=== PATIENT | male | born 1955 | race Caucasian/White ===

== ENCOUNTER 2019-01-06 08:33 | Outpatient (CLI) | payer BC ==
[2019-01-06 09:10] LABS: Estimated GFR-MDRD - POC Greater than 90
--- NOTE | 2019-01-06 13:06 | MRI ---
MRI OF THE PROSTATE WITHOUT AND WITH CONTRAST: COMPARISON: None. HISTORY: Elevated PSA. TECHNIQUE: Multiplanar, multisequence MR images were obtained of the pelvis/prostate without and with IV contras t. FINDINGS: There is mild hypertrophy of the central gland consistent with BPH. No suspicious low T2 signal lesi ons are seen within the central gland of the prostate or within the peripheral zone of the prostate. No restricted diffusion or low signal was seen on the ADC map in the peripheral zone of the prostate . The seminal vesicles are intact. The neurovascular bundles are unremarkable. No pelvic adenopathy is seen. No marrow signal abnormality is present. No suspicious enhancement is seen. IMPRESSION: PIRADS category 2 - low likelihood that a clinically significant cancer is present. POS: [facility]
[2019-01-06] MEDS ORDERED: Gadobenate Dimeglumine 529 MG/1 ML (20ML VIAL) ONE (13:48)
== END 2019-01-06 08:34 | disposition home or self-care (01) ==
LOC: TBSIIMAG 08:33
PROVIDERS: ATTEND Urology
DX: R97.20 Elevated prostate specific antigen [PSA] (principal); R39.15 Urgency of urination
CPT/HCPCS: 72197; 82565; A9577

== ENCOUNTER 2019-01-24 11:47 | Outpatient (CLI) | payer BC ==
[2019-01-24 13:31] LABS: Hemoglobin 14.5 g/dL (14.0-18.0); Mean Corpuscular HGB CONC 33.5 g/dL (32.0-36.0); Mean Corpuscular Hemoglobin 32.2 pg (27.0-31.0); Mean Corpuscular Volume 96.2 fL (78.0-98.0); Mean Platelet Volume 9.8 fL (7.4-10.4); Platelet Count 164 thou/uL (130-400); RBC Distribution Width 12.3 % (11.5-14.5); Red Blood Cell (RBC) Count 4.51 mill/uL (4.70-6.10)
[2019-01-24 13:38] LABS: PTT 27.7 SEC (22.9-36.1); Prothrombin Time 13.3 SEC (12.0-14.7)
--- NOTE | 2019-01-24 13:39 | RAD ---
XR Chest Pa Lat STANDARD History: [Preop] Comparison: Radiograph 2012 Findings: Lungs are clear. No pneumothorax or effusion. Mild biapical scarring. Cardiac silhouette an d mediastinal contours are within normal limits. No acute osseous abnormality. Impression: No acute intrathoracic abnormality.
[2019-01-24 13:55] LABS: Anion Gap 8 mmol/L (10-20); BUN (Urea Nitrogen) 11 mg/dL (8.4-25.7); Calc. Creatinine Clearance 0 mL/min (70-130); Calcium 10.1 mg/dL (7.8-10.44); Carbon Dioxide 30 mmol/L (23-31); Chloride 106 mmol/L (98-107); Estimated GFR-MDRD Greater than 90; Glucose 84 mg/dL (80-115); Potassium 4.3 mmol/L (3.5-5.1); Sodium 140 mmol/L (136-145)
--- NOTE | 2019-01-25 11:00 | EKG ---
Test Reason : Blood Pressure : / mmHG Vent. Rate : 046 BPM Atrial Rate : 046 BPM P-R Int : 196 ms QRS Dur : 090 ms QT Int : 442 ms P-R-T Axes : 076 059 057 degrees QTc Int : 386 ms Marked sinus bradycardia Abnormal ECG No previous ECGs available Confirmed by DR. Lyndsey QUINTEROS ([id number]) on 01/25/2019 11:00:42 AM Referred By: LUIS DANIEL Confirmed By:DR. Lyndsey QUINTEROS
== END 2019-01-24 11:48 | disposition home or self-care (01) ==
LOC: LABBT 11:47
PROVIDERS: ATTEND Urology
DX: Z01.818 Encounter for other preprocedural examination (principal); R97.20 Elevated prostate specific antigen [PSA]; R39.15 Urgency of urination; N52.9 Male erectile dysfunction, unspecified; Z98.890 Other specified postprocedural states
CPT/HCPCS: 71046; 80048; 81001; 85027; 85610; 85730; 87081; 87086; 93005; 93010

== ENCOUNTER 2019-01-29 06:24 | Day surgery (SDC) | payer BC ==
[2019-01-24 12:41] VITALS: BMI 22.4
[2019-01-29] MEDS ORDERED: cefTRIAXone\\ROCEPHIN 1 GM VIAL ONE (07:21)
[2019-01-29] MEDS ORDERED: Sodium Chloride 0.9% 100 ML ONE (07:21)
[2019-01-29] MEDS ORDERED: Levofloxacin 500 mg/D5W 100 ml Premix Bag ONE (07:21)
[2019-01-29] MEDS ORDERED: Midazolam HCl 2 mg/2 ml Vial ONE (09:30)
[2019-01-29] MEDS ORDERED: Fentanyl 100 MCG/2 ML VIAL ONE (09:30)
[2019-01-29] MEDS ORDERED: Tamsulosin HCl 0.4 MG CAP ONE (10:47)
--- NOTE | 2019-01-29 11:57 | OP ---
DATE OF PROCEDURE: 01/29/2019 PREOPERATIVE DIAGNOSES: 1. A 63-year-old male with history of elevated PSA, status post prostate biopsy, negative for malignancy, volume 38 g, right apex lateral focus of high-grade PIN. 2. Persistent elevation of PSA, increased PSA velocity to 9.7 with negative MRI. POSTOPERATIVE DIAGNOSES: 1. A 63-year-old male with history of elevated PSA, status post prostate biopsy, negative for malignancy, volume 38 g, right apex lateral focus of high-grade PIN. 2. Persistent elevation of PSA, increased PSA velocity to 9.7 with negative MRI. PROCEDURES PERFORMED: Transrectal ultrasound, extended core biopsy. ANESTHESIA: TIVA. COMPLICATIONS: None apparent. DISPOSITION: To recovery room in stable condition. SPECIMEN: 1. Standard 12-core prostate biopsy. In addition, 6 additional biopsies, bilateral periurethral. 2. Two additional core biopsies, right and left anterior apical peripheral zone. INDICATIONS FOR PROCEDURE AND HISTORY: Mr. Odonnell is a pleasant 63-year-old male, who presented for evaluation of elevated PSA. He did have some GI upset with initial biopsy. As we are performing an extended core biopsy, we discussed options of TIVA anesthesia for extended core, and he desired to proceed with exam under anesthesia as he did have some discomfort due to previous prostate biopsy. He underwent a 3T magnet MRI, which demonstrated no enhancing lesion. Therefore, he is not a candidate for targeted biopsy as there is no targetable lesion seen on MRI as there can be prostate cancer, albeit low-grade with a negative MRI, with history of high-grade PIN and elevated PSA velocity advised regarding extended core biopsy, which he presents. Risks and complications including, but not limited to, bleeding, pain, infection, sepsis, blood per rectum, hematuria requiring secondary procedure, chronic pain. Possible negative biopsy warranting further workup if needed was reviewed with the patient in detail. He desired to proceed. DESCRIPTION OF PROCEDURE: After an informed consent was signed, the patient was taken to cystoscopy suite, placed in a supine position. I did place a 16-[place] Flores catheter periprocedural which there was mild meatal resistance; however, this was passed without difficulty. Clear output of urine was noted. The patient was then placed in a lateral decubitus position and a digital rectal exam was performed, which demonstrated ENIO about 35-40 g with no discrete nodularity of concern. At this time, a prostate ultrasound probe was placed per rectum and we did standard measurement of his volume. This measured: Urethral length of 4.0 cm with a 5.4 , height of 3.0 with volume estimated to be 35 g. No intravesical median lobe. No lesions were seen. At this time, using a biopsy needle gun, we performed a standard 12-core needle biopsy, properly labeled and sent. In addition to the 12-core, we obtained bilateral mid periurethral biopsies. We subsequently then performed our anterior apical prostate biopsy cores. Total of 20 cores were sent. There was evidence of hematuria component as I anticipated given his small prostate volume. I irrigated small amount of clots with subsequent pink-tinged urine. I will monitor his urine output in day stay. If there is clearing of his urine, I will initiate a voiding trial. If there is hematuria of concern, he will be discharged with indwelling Flores catheter. He is discharged with ciprofloxacin until followup appointment 1 p.o. b.i.d. for 7 days, [place] short course #20 provided, Karlo p.r.n. patient monitor postop, urine output pink tinged. PVR check minimal ; discharged without indwelling Flores catheter Job ID: [id number] MTDD
[2019-01-29] MEDS ORDERED: ePHEDrine 50 MG/ML VIAL ONE (15:09)
[2019-01-29] MEDS ORDERED: Lidocaine 1% PF 5 ML VIAL ONE (15:09)
[2019-01-29] MEDS ORDERED: Ondansetron PF 4 MG/2 ML Vial ONE (15:09)
[2019-01-29] MEDS ORDERED: Dexamethasone 20 MG/5 ML VIAL ONE (15:09)
[2019-01-29] MEDS ORDERED: PROPOFOL 200 MG/20 ML VIAL ONE (15:09)
[2019-01-29] MEDS ORDERED: Ketorolac Tromethamine 30 MG/ML VIAL ONE (15:09)
== END 2019-01-29 16:45 | disposition home or self-care (01) ==
LOC: SDC 06:24
PROVIDERS: ATTEND Urology
PROC: 0VB03ZX Excision of Prostate, Percutaneous Approach, Diagnostic (ICD-10-PCS; principal; 2019-01-29)
DX: R97.20 Elevated prostate specific antigen [PSA] (principal); N52.9 Male erectile dysfunction, unspecified; E78.5 Hyperlipidemia, unspecified; R39.15 Urgency of urination; Z79.899 Other long term (current) drug therapy
CPT/HCPCS: 88305; 88341; 88342; J0696; J1100; J1885; J1956; J2001; J2250; J2405; J2704; J3010; J3490

== ENCOUNTER 2021-01-24 09:37 | Outpatient (CLI) | payer BC | END 2021-01-24 09:38 | disposition home or self-care (01) | LOC: TBSIIMAG 09:37 | PROVIDERS: ATTEND Urology | DX: R97.20 Elevated prostate specific antigen [PSA] (principal) | CPT/HCPCS: 72197 ==

== ENCOUNTER 2023-01-19 08:49 | Outpatient (CLI) | payer BC ==
[2023-01-19 10:25] LABS: Bilirubin Neg (Negative); Blood, Urine Negative (Negative); Clarity Clear (Clear); Glucose, Urine (Dipstick) Normal (Negative); Ketone, Urine Negative (Negative); Leukocyte Negative (Negative); Nitrite Negative (Negative); Protein, Urine (Dipstick) Negative (Neg-Trace); Urobilinogen Normal mg/dL (Less than 2)
[2023-01-19 10:38] LABS: Bacteria/HPF None Seen HPF (None Seen); RBC/HPF None Seen HPF (0-3); Squamous Epithelial None Seen HPF (0-3); WBC/HPF None Seen HPF (0-3)
[2023-01-19 10:42] LABS: Hemoglobin 14.2 g/dL (13.5-17.5); Mean Corpuscular HGB CONC 32.7 g/dL (32.0-36.0); Mean Corpuscular Hemoglobin 30.9 pg (27.0-33.0); Mean Corpuscular Volume 94.6 fl (81.2-95.1); Mean Platelet Volume 12.9 fl (7.4-10.4); Platelet Count 175 10x3/uL (150-450); RBC Distribution Width 13.1 % (11.5-14.5); Red Blood Cell (RBC) Count 4.59 10x6/uL (4.32-5.72); White Blood Cell (WBC) Count 4.7 10x3/uL (3.5-10.5)
[2023-01-19 10:48] LABS: PTT 27.3 sec (22.0-33.0); Prothrombin Time 10.7 sec (9.5-12.1)
[2023-01-19 10:49] LABS: Anion Gap 13 mmol/L (10-20); BUN (Urea Nitrogen) 12 mg/dL (8.4-25.7); Calc. Creatinine Clearance 0 mL/min (70-130); Calcium 9.8 mg/dL (7.8-10.44); Carbon Dioxide 25 mmol/L (23-31); Chloride 108 mmol/L (98-107); Estimated GFR 99; Glucose 79 mg/dL (80-115); Potassium 5.1 mmol/L (3.5-5.1); Sodium 141 mmol/L (136-145)
== END 2023-01-19 08:50 | disposition home or self-care (01) ==
LOC: LABBT 08:49
PROVIDERS: ATTEND Urology
DX: Z01.818 Encounter for other preprocedural examination (principal); Z12.5 Encounter for screening for malignant neoplasm of prostate; N40.1 Benign prostatic hyperplasia with lower urinary tract symptoms; R97.20 Elevated prostate specific antigen [PSA]; N42.31 Prostatic intraepithelial neoplasia; N52.9 Male erectile dysfunction, unspecified; R39.15 Urgency of urination; N43.40 Spermatocele of epididymis, unspecified; R35.0 Frequency of micturition; Z98.890 Other specified postprocedural states
CPT/HCPCS: 71046; 80048; 81001; 85027; 85610; 85730; 87086; 93005; 93010

== ENCOUNTER 2023-02-22 08:26 | Outpatient (CLI) | payer BC ==
[2023-02-22] MEDS ORDERED: Iopamidol 370 76% 100 ML VIAL ONE (15:31)
== END 2023-02-22 08:27 | disposition home or self-care (01) ==
LOC: CT 08:26
PROVIDERS: ATTEND Urology
DX: C61 Malignant neoplasm of prostate (principal); R31.9 Hematuria, unspecified; Q44.6 Cystic disease of liver; N32.9 Bladder disorder, unspecified; N40.0 Benign prostatic hyperplasia without lower urinary tract symptoms
CPT/HCPCS: 74178; 78306; 82565; A9503; Q9967

== ENCOUNTER 2023-04-06 11:25 | Outpatient (CLI) | payer BC | END 2023-04-06 11:26 | disposition home or self-care (01) | LOC: SCSRAD 11:25 | PROVIDERS: ATTEND Radiology Radiation Oncology | DX: C79.51 Secondary malignant neoplasm of bone (principal); M25.811 Other specified joint disorders, right shoulder ==